=== PATIENT | male | born 1990 | race Caucasian/White ===

== ENCOUNTER 2016-09-16 23:43 | Emergency (ER) | payer OTHER ==
[~2016-09-16] VITALS: Ht 188 cm; Wt 121.1 kg
[~2016-09-16 23:43] MED LIST: MOBIC7.5 MG PO
[2016-09-17] MEDS ORDERED: NAPROXEN500 MG PO (02:01)
[2016-09-17 02:10] VITALS: BP 177/105
== END 2016-09-17 02:11 | disposition home or self-care (01) ==
LOC: EME 23:43
DX: M54.5 Low back pain (principal); N50.9 Disorder of male genital organs, unspecified
CPT/HCPCS: 99281; 99283

== ENCOUNTER 2017-02-15 19:04 | Emergency (ER) | payer OTHER ==
[~2017-02-15] VITALS: Ht 188 cm; Wt 125.3 kg
[~2017-02-15 19:04] MED LIST changes: +NAPROXEN500 MG PO
[2017-02-15 21:12] LABS: HEMATOCRIT 45.6 % (38.0-50.0); MCH 29.4 PG (29.0-34.0); MCHC 35.5 G/DL (30.0-36.0); MCV 82.8 FL (86-99); MEAN PLAT.VOLUME 10.6 uM^3 (9.0-12.4); PLATELET COUNT 184 K/uL (156-360); RBC DIS.WIDTH-CV 12.1 % (11.8-14.6); RBC DIS.WIDTH-SD 36.7 % (39-53); RED BLOOD COUNT 5.51 M/uL (4.00-5.50); WHITE BLOOD COUNT 6.7 K/uL (4.1-10.2)
[2017-02-15 21:20] LABS: CHLORIDE 108 mEq/L (99-109); POTASSIUM 3.7 mEq/L (3.7-5.4); SODIUM 141 mEq/L (136-147)
[2017-02-15 21:22] LABS: GLUCOSE 105 mg/dL (70-99)
[2017-02-15 21:23] LABS: ANION GAP 9 MEQ/L (2-14)
[2017-02-15 21:24] LABS: TOTAL BILIRUBIN 0.3 mg/dL (0.0-1.0)
[2017-02-15 21:26] LABS: ALKALINE PHOSPHATASE 58 IU/L (3-129); GFR ESTIMATE (CALCULATED) > 59 mL/min/
[2017-02-15 21:27] LABS: UREA NITROGEN (BUN) 14 mg/dL (9-23)
[2017-02-15 21:35] LABS: TROP-I INTERPRETATION NEGATIVE; TROPONIN-I < 0.01 ng/mL (0.0-0.30)
[2017-02-16 00:03] VITALS: BP 160/92
== END 2017-02-16 00:03 | disposition home or self-care (01) ==
LOC: EME 19:04
PROVIDERS: Physician Assistant
DX: I10 Essential (primary) hypertension (principal); R51 Headache; Z82.49 Family history of ischemic heart disease and other diseases of the circulatory system; F17.200 Nicotine dependence, unspecified, uncomplicated
CPT/HCPCS: 71020; 80053; 84443; 84484; 85027; 93005; 99281; 99283